=== PATIENT | female | born 1995 | race Hispanic/Latino ===

== ENCOUNTER 2017-09-30 06:27 | Inpatient (IN) | payer OTHER ==
[2017-09-30] MEDS ORDERED: LR / Pitocin 40 units/1000 ml 1,000 ML ONE (06:53)
[2017-09-30] MEDS ORDERED: Oxytocin 10 UNITS/ML VIAL ONE (06:53)
[2017-09-30] MEDS ORDERED: Lidocaine 1% (PF) 30 ML VIAL ONE (06:53)
[2017-09-30] MEDS ORDERED: Ibuprofen 800 MG TAB PO PRN (06:55)
[2017-09-30] MEDS ORDERED: Promethazine HCl 25 MG/ML VIAL IM PRN (06:55)
[2017-09-30] MEDS ORDERED: Lidocaine 1% (PF) 30 ML VIAL SC PRN (06:55)
[2017-09-30] MEDS ORDERED: HYDROcodone/Acetaminophen 5/325 mg Tablet PO PRN ×2 (06:55)
[2017-09-30] MEDS ORDERED: Ondansetron HCl/PF 4 MG/2 ML Vial IVP PRN (06:55)
[2017-09-30] MEDS ORDERED: LR / Pitocin 40 units/1000 ml 1,000 ML IV PRN (06:55)
[2017-09-30] MEDS: Lactated Ringer's 1,000 ML IV SCH ×3 (07:00→21:52)
--- NOTE | 2017-09-30 07:00 | PDOC.LDHP ---
Labor and Delivery H&P HPI: Patient just arrived as stat admit... clinic patient...complete on cervical exam. Residents aware as well. Still in process of admission. at term...residents now in room.Denies issues. Dating criteria: last menstrual period Current complications: none Current medications: none Allergies/Adverse Reactions: Allergies Allergy/AdvReac Type Severity Reaction Status Date / Time No Known Allergies Allergy Verified 06/26/13 15:19 - Physical Exam Vital signs reviewed and normal: yes General: other (Contraction pain) Heart: RRR Abdomen: gravid - Vaginal Exam cm dilated: 10 Effacement: 100% Station: 1+ - Assessment L&D Assessment: term patient in labor - Plan Plan: admit to L&D, informed consent obtained, anesthesia consult for pain management, other (Admitted as a stat admit in second stage. Residents now on boggs. As I may need to go to another delivery in another room, will have FM Attending stand-by as Faculty for [facility] here.)
--- NOTE | 2017-09-30 07:36 | PDOC.OPDEL ---
OB Operative/Delivery Note Delivery Dr/Surgeon: Dr. Phan, Dr. Mccullough Assist: Attending: Dr. Rowan Pre-Delivery Diagnosis: active labor, ruptured membrane Procedure/Post Delivery Dx: spontaneous vaginal delivery Weeks gestation: 38 (38.3) Anesthesia: none - Findings A Sex: male - 1 min: 9 - 5 min: 9 - Additional Findings/Plan Placenta delivered: spontaneous Repaired Obstetrical Laceration: 1st degree (hemostatic) Estimated blood loss: 200 Post delivery plan: routine recovery <Renee Almonte - Last Filed: 09/30/17 07:34> Attending Addendum - Attending Addendum I was present for the entire delivery. ->2 s/p to TAGA male apgars 9/9. delivered OA, no nuchal cord. Optimal clamping performed and placed skin to skin. Blood sampled. Placenta delivered via CCT. Fundus firmed with IV pit and massage. Bilateral small hemostatic periurethral lacerations noted. EBL 200 cc. No immediate complications. <Harley Rowan - Last Filed: 09/30/17 10:03>
[2017-09-30 08:14] LABS: Hematocrit 35.3 % (36.0-47.0); Mean Platelet Volume 9.4 fL (7.4-10.4); Red Blood Cell (RBC) Count 4.26 mill/uL (4.20-5.40); White Blood Cell (WBC) Count 8.3 thou/uL (4.8-10.8)
[2017-09-30 08:52] VITALS: BMI 25.7
[2017-09-30] MEDS ORDERED: Docusate Calcium (SURFAK) 240 MG CAP PO SCH ×2 (10:08→10:30)
[2017-09-30] MEDS ORDERED: Bisacodyl 10 MG SUPP PR PRN (10:08)
[2017-09-30] MEDS ORDERED: Ferrous Sulfate 325 MG TAB PO SCH ×2 (10:08→10:30)
[2017-09-30] MEDS ORDERED: Milk Of Magnesia 30 ML UDCUP PO PRN (10:08)
[2017-09-30] MEDS ORDERED: LR / Pitocin 40 units/1000 ml 1,000 ML IV SCH (10:08)
[2017-09-30] MEDS ORDERED: Adacel (T-DAP) 0.5 ML VIAL IM ONE (12:00)
[2017-09-30] MEDS: Ibuprofen 800 MG TAB PO SCH ×2 (14:56→21:28)
[2017-09-30] MEDS: Ferrous Sulfate 325 MG TAB PO SCH (15:43)
[2017-09-30] MEDS ORDERED: Ibuprofen 800 MG TAB PO SCH (18:00)
[2017-09-30] MEDS: Docusate Calcium (SURFAK) 240 MG CAP PO SCH (21:28)
[2017-10-01] MEDS: Ibuprofen 800 MG TAB PO SCH ×2 (05:24→13:53)
[2017-10-01] MEDS: Lactated Ringer's 1,000 ML IV SCH (05:33)
[2017-10-01] MEDS: Ferrous Sulfate 325 MG TAB PO SCH (08:00)
[2017-10-01] MEDS: Docusate Calcium (SURFAK) 240 MG CAP PO SCH (08:01)
[2017-10-01 08:41] VITALS: BP 99/56; TEMP 98.1
--- NOTE | 2017-10-01 10:30 | PDOC.PP ---
Post Progress Note Post Day #: 1 Subjective: Pt doing well. Denies any acute events overnight. Denies any fever or chills. Denies any pain. tolerating PO. Has been up and moved around without any weakness or trouble. Is and has no concerns at this time. Pt ready to go home. PO intake tolerated: yes Flatus: yes Ambulation: yes Vital Signs (12 hours) Temp Pulse Resp BP 10/01/17 08:00 98.1 F 61 18 99/56 L 10/01/17 07:45 98.1 F 61 18 10/01/17 03:50 98.3 F 70 16 103/65 09/30/17 23:34 98.2 F 63 16 105/59 L Weight Weight 65.771 kg - Physical Examination General: NAD Cardiovascular: no m/r/g, RRR Respiratory: clear to auscultation bilaterally, non-labored breathing Abdominal: + bowel sounds, lochia, no distention, appropriately TTP Fundus firm & at: Fundus firm Extremities: negative homans (B) Skin: no rash Neurological: no gross focal deficits Psychiatric: A&Ox3, normal affect Result Diagrams: 09/30/17 06:57 Additional Labs: Post Labs Hep Bs Antigen Non-Reactive S/CO (NonReactive) 09/30/17 06:57 (1) Status: Resolved QualifierTitle: Weeks of gestation: 38 weeks Qualified Code(s): Z3A.38 - 38 weeks gestation of Comment: delivered @38.3 weeks via @7:07 yesterday. -GBS negative -EBL 200. Normal red lochia noted. No heavy flow. -Vital signs stable overnight. -Pt denies any problems at this time. Ready to go home. Can be d/c pending baby bilirubin check. - with no acute concerns at this time. -Routine Post care. <Kin Balbuena - Last Filed: 10/01/17 10:28> Vital Signs (12 hours) Temp Pulse Resp BP 10/01/17 08:00 98.1 F 61 18 99/56 L 10/01/17 07:45 98.1 F 61 18 10/01/17 03:50 98.3 F 70 16 103/65 Weight Weight 65.771 kg Result Diagrams: 09/30/17 06:57 Additional Labs: Post Labs Hep Bs Antigen Non-Reactive S/CO (NonReactive) 09/30/17 06:57 <Kimmy Bartlett - Last Filed: 10/01/17 13:45> Attending Addendum - Attending Addendum I personally evaluated the patient and discussed the management with Dr. Balbuena. I agree with the History, Examination, Assessment and Plan documented above with any addition or exceptions noted below. pod#1 s/p - recovering well. Stable for d/c home. <Kimmy Bartlett - Last Filed: 10/01/17 13:45>
== END 2017-10-01 14:30 | disposition home or self-care (01) | DRG 775 ==
LOC: L&D/OP 06:27 → L&D 06:30 → 3SW 10:07
PROVIDERS: ADMIT Obstetrics & Gynecology; ATTEND Obstetrics & Gynecology
PROC: 10E0XZZ Delivery of Products of Conception, External Approach (ICD-10-PCS; principal; 2017-09-30)
DX: O71.82 Other specified trauma to perineum and vulva (principal); Z37.0 Single live birth; Z3A.38 38 weeks gestation of pregnancy
CPT/HCPCS: 85027; 86780; 87340; 87389; J2001; J2590